=== PATIENT | female | born 1980 | race Caucasian/White ===

== ENCOUNTER 2021-04-24 08:15 | Outpatient (CLI) | payer BC, SELFPAY ==
[2021-04-24 09:14] LABS: Glucose Fasting 108 mg/dL (74-109)
[2021-04-24 11:16] LABS: Glucose 1 Hour 216 mg/dL
[2021-04-24 12:36] LABS: Glucose 2 Hour 180 mg/dL
[2021-04-24 13:02] LABS: Glucose 3 Hour 90 mg/dL
== END 2021-04-24 08:16 | disposition home or self-care (01) ==
LOC: LAB 08:21
PROVIDERS: PCP Family Medicine; Visit Provider Nurse Practitioner Family
DX: R25.1 Tremor, unspecified (principal)
CPT/HCPCS: 82951; 82952